=== PATIENT | male | born 1995 | race Native Hawaiian/Other Pacific Islander ===

== ENCOUNTER 2019-06-19 19:36 | Emergency (ER) | payer OTHER ==
[~2019-06-19] VITALS: Ht 170.2 cm; Wt 136.4 kg
[2019-06-19 20:25] LABS: BASOPHILS % (AUTO) 0.5 % (0.0-2.0); EOSINOPHILS % (AUTO) 2.7 % (1.0-6.0); HEMATOCRIT 46.1 % (41-53); HEMOGLOBIN 15.3 g/dL (13.5-17.5); LYMPHOCYTES # (AUTO) 1.9 K/uL (1.0-4.8); LYMPHOCYTES % (AUTO) 16.7 % (22.0-44.0); MEAN CORPUSCULAR HEMOGLOBIN 29.9 pg (26.0-34.0); MEAN CORPUSCULAR HGB CONC 33.2 G/dL (31.0-37.0); MEAN CORPUSCULAR VOLUME 90 fL (80-100); MONOCYTES # (AUTO) 0.9 K/uL (0.1-1.0); MONOCYTES % (AUTO) 7.8 % (2.0-9.0); NEUTROPHILS # (AUTO) 8.2 K/uL (1.8-7.7); NEUTROPHILS % (AUTO) 72.3 % (40.0-70.0); PLATELET COUNT (AUTO) 396 K/uL (150-450); RED BLOOD CELL COUNT(AUTO) 5.12 MIL/uL (4.50-5.90); RED CELL DISTRIBUTION WIDTH 13.9 % (11.5-14.5)
[2019-06-19 20:34] LABS: ANION GAP 9 mmol/L (8-16); CALCIUM, TOTAL 9.6 mg/dL (8.8-10.5); CARBON DIOXIDE 25 mmol/L (22-29); CHLORIDE 101 mmol/L (98-107); CREATININE 0.84 mg/dL (0.60-1.30); GLOMERULAR FILTR. RATE CALC > 60 mL/min (>60); GLUCOSE,RANDOM 98 mg/dL (70-110); POTASSIUM 4.3 mmol/L (3.5-5.1); SODIUM SERUM 135 mmol/L (136-145); UREA NITROGEN, BLOOD 15 mg/dL (7-18)
[2019-06-19 20:40] LABS: ALANINE AMINOTRANSFERASE 32 U/L (12-78); ALBUMIN 3.8 g/dL (3.4-5.0); ALKALINE PHOSPHATASE 62 U/L (46-116); ASPARTATE AMINOTRANSFERASE 20 U/L (15-37); BILIRUBIN,TOTAL 0.3 mg/dL (0.1-1.0); TOTAL PROTEIN, SERUM 8.5 g/dL (6.4-8.2)
[2019-06-19 20:41] LABS: AMPHET/METH SCREEN,URINE POSITIVE (NEGATIVE); BARBITURATE SCREEN, URINE NEGATIVE (NEGATIVE); BENZODIAZEPINES SCREEN,URINE NEGATIVE (NEGATIVE); CANNABINOID SCREEN,URINE POSITIVE (NEGATIVE); COCAINE SCREEN,URINE NEGATIVE (NEGATIVE); METHADONE SCREEN, URINE NEGATIVE (NEGATIVE); OPIATE SCREEN,URINE NEGATIVE (NEGATIVE)
[2019-06-19 20:45] VITALS: BP 121/66
[2019-06-19 20:46] LABS: PHENCYCLIDINE SCREEN,URINE NEGATIVE (NEGATIVE)
== END 2019-06-19 21:05 | disposition home or self-care (01) ==
LOC: EMS 19:36
DX: F20.9 Schizophrenia, unspecified (principal); F12.90 Cannabis use, unspecified, uncomplicated; F17.210 Nicotine dependence, cigarettes, uncomplicated; F11.90 Opioid use, unspecified, uncomplicated
CPT/HCPCS: 36415; 80053; 80307; 85025; 99284; G0480

== ENCOUNTER 2019-06-21 13:04 | Inpatient (IN) | payer MEDICAID ==
[~2019-06-21] VITALS: Ht 170.2 cm; Wt 131.1 kg
[2019-06-21 14:41] VITALS: BP 113/65
[2019-06-21] MEDS ORDERED: ACETAMINOPHEN 325 MG TABLET PO PRN (15:00)
[2019-06-21] MEDS ORDERED: LORazepam 2 MG TABLET PO PRN (15:00)
[2019-06-21] MEDS ORDERED: OLANZapine 5 MG RAPDIS TABLET PO PRN (15:00)
[2019-06-21] MEDS ORDERED: MAGNESIUM HYDROXIDE SUSPENSION 30 ML UDCUP PO PRN (15:00)
[2019-06-21] MEDS ORDERED: MAG HYDROX/AL HYDROX/SIMETH ES 30 ML SUSPENSION UDCUP PO PRN (15:00)
[2019-06-21] MEDS ORDERED: LOPERAMIDE HCL 2 MG CAPSULE PO PRN (15:00)
[2019-06-21] MEDS ORDERED: GuaiFENesin/D-METHORPHAN [SUGAR-FREE] 200-20MG/10 ML SYRUP UDCUP PO PRN (15:30)
[2019-06-21] MEDS ORDERED: HydrOXYzine PAMOATE 50 MG CAPSULE PO PRN (15:30)
[2019-06-21 16:10] VITALS: BP 107/60
[2019-06-21] MEDS: THIAMINE MONONITRATE 100 MG TABLET PO SCH (17:37)
[2019-06-21] MEDS ORDERED: OLANZapine 5 MG RAPDIS TABLET PO SCH (21:00)
[2019-06-22 05:27] VITALS: BP 137/57
[2019-06-22 07:58] LABS: BASOPHILS % (AUTO) 0.3 % (0.0-2.0); EOSINOPHILS % (AUTO) 4.7 % (1.0-6.0); HEMATOCRIT 44.3 % (41-53); HEMOGLOBIN 14.2 g/dL (13.5-17.5); LYMPHOCYTES # (AUTO) 1.8 K/uL (1.0-4.8); LYMPHOCYTES % (AUTO) 27.6 % (22.0-44.0); MEAN CORPUSCULAR HEMOGLOBIN 29.4 pg (26.0-34.0); MEAN CORPUSCULAR HGB CONC 32.2 G/dL (31.0-37.0); MEAN CORPUSCULAR VOLUME 91 fL (80-100); MONOCYTES # (AUTO) 0.7 K/uL (0.1-1.0); MONOCYTES % (AUTO) 11.2 % (2.0-9.0); NEUTROPHILS # (AUTO) 3.7 K/uL (1.8-7.7); NEUTROPHILS % (AUTO) 56.2 % (40.0-70.0); PLATELET COUNT (AUTO) 354 K/uL (150-450); RED BLOOD CELL COUNT(AUTO) 4.85 MIL/uL (4.50-5.90); RED CELL DISTRIBUTION WIDTH 14.2 % (11.5-14.5)
[2019-06-22 08:19] LABS: HEMOGLOBIN A1C 5.4 % (3.8-5.6)
[2019-06-22 08:30] LABS: ALANINE AMINOTRANSFERASE 22 U/L (12-78); ALKALINE PHOSPHATASE 45 U/L (46-116); ANION GAP 5 mmol/L (8-16); ASPARTATE AMINOTRANSFERASE 14 U/L (15-37); BILIRUBIN,TOTAL 0.2 mg/dL (0.1-1.0); CALCIUM, TOTAL 9.1 mg/dL (8.8-10.5); CARBON DIOXIDE 29 mmol/L (22-29); CHLORIDE 106 mmol/L (98-107); CHOL/HDL RATIO 2.9 (4.2-7.3); CHOLESTEROL 106 mg/dL (131-200); CREATININE 0.95 mg/dL (0.60-1.30); FREE T4 (FREE THYROXINE) 1.35 ng/dL (0.76-1.46); GLOMERULAR FILTR. RATE CALC > 60 mL/min (>60); GLUCOSE,RANDOM 88 mg/dL (70-110); HDL CHOLESTEROL 36 mg/dL (40-60); LDL CHOL (CALC.) 62 mg/dL (0-130); POTASSIUM 3.8 mmol/L (3.5-5.1); SODIUM SERUM 140 mmol/L (136-145); THYROID STIMULATING HORMONE 0.81 uIU/mL (0.36-3.74); TOTAL PROTEIN, SERUM 6.7 g/dL (6.4-8.2); TRIGLYCERIDES 41 mg/dL (15-150); UREA NITROGEN, BLOOD 11 mg/dL (7-18)
[2019-06-22 08:55] VITALS: BP 103/64
[2019-06-22] MEDS: NICOTINE 21 MG/24 HOUR PATCH TD SCH (09:00)
[2019-06-22] MEDS: NALTREXONE HCL 50 MG TABLET PO SCH (09:35)
[2019-06-22] MEDS: FOLIC ACID 1 MG TABLET PO SCH (09:35)
[2019-06-22] MEDS: THIAMINE MONONITRATE 100 MG TABLET PO SCH ×2 (09:35→16:14)
[2019-06-22] MEDS: MULTIVITAMINS WITH MINERALS, THERAPEUTIC TABLET PO SCH (09:35)
[2019-06-22 17:15] VITALS: BP 99/55
[2019-06-22] MEDS: ZOLPIDEM TARTRATE 10 MG TABLET PO PRN (20:09)
[2019-06-22] MEDS: OLANZapine 10 MG RAPDIS TABLET PO SCH (20:10)
[2019-06-23 04:56] VITALS: BP 109/69
[2019-06-23 08:10] VITALS: BP 110/62
[2019-06-23] MEDS: NALTREXONE HCL 50 MG TABLET PO SCH (08:37)
[2019-06-23] MEDS: FOLIC ACID 1 MG TABLET PO SCH (08:37)
[2019-06-23] MEDS: THIAMINE MONONITRATE 100 MG TABLET PO SCH ×2 (08:37→16:56)
[2019-06-23] MEDS: MULTIVITAMINS WITH MINERALS, THERAPEUTIC TABLET PO SCH (08:37)
[2019-06-23] MEDS: NICOTINE 21 MG/24 HOUR PATCH TD SCH (08:46)
[2019-06-23 09:55] LABS: APPEARANCE,URINE CLEAR (CLEAR); BILIRUBIN,URINE NEGATIVE (NEGATIVE); GLUCOSE, URINE (UA) NEGATIVE (NEGATIVE); KETONES,URINE NEGATIVE (NEGATIVE); LEUKOCYTE ESTERASE ,URINE NEGATIVE (NEGATIVE); NITRATE,URINE NEGATIVE (NEGATIVE); OCCULT BLOOD,URINE NEGATIVE (NEGATIVE); PH,URINE 7.5 (5.0-8.0); PROTEIN,URINE NEGATIVE (NEGATIVE)
[2019-06-23 10:04] LABS: AMPHET/METH SCREEN,URINE NEGATIVE (NEGATIVE); BARBITURATE SCREEN, URINE NEGATIVE (NEGATIVE); BENZODIAZEPINES SCREEN,URINE NEGATIVE (NEGATIVE); CANNABINOID SCREEN,URINE POSITIVE (NEGATIVE); COCAINE SCREEN,URINE NEGATIVE (NEGATIVE); METHADONE SCREEN, URINE NEGATIVE (NEGATIVE); OPIATE SCREEN,URINE NEGATIVE (NEGATIVE)
[2019-06-23 10:06] LABS: PHENCYCLIDINE SCREEN,URINE NEGATIVE (NEGATIVE)
[2019-06-23] MEDS ORDERED: NALT50TA PO (15:10)
[2019-06-23] MEDS ORDERED: OLAN10TA22 PO (15:10)
[2019-06-23 16:07] VITALS: BP 100/74
[2019-06-23] MEDS: OLANZapine 10 MG RAPDIS TABLET PO SCH (20:53)
[2019-06-23] MEDS: ZOLPIDEM TARTRATE 10 MG TABLET PO PRN (20:53)
[2019-06-24 06:37] VITALS: BP 111/55
[2019-06-24 08:15] VITALS: BP 97/45
[2019-06-24] MEDS: MULTIVITAMINS WITH MINERALS, THERAPEUTIC TABLET PO SCH (08:47)
[2019-06-24] MEDS: NALTREXONE HCL 50 MG TABLET PO SCH (08:47)
[2019-06-24] MEDS: THIAMINE MONONITRATE 100 MG TABLET PO SCH ×2 (08:47→16:32)
[2019-06-24] MEDS: FOLIC ACID 1 MG TABLET PO SCH (08:47)
[2019-06-24] MEDS: NICOTINE 21 MG/24 HOUR PATCH TD SCH (09:00)
[2019-06-24 16:15] VITALS: BP 131/76
== END 2019-06-24 18:37 | disposition home or self-care (01) | DRG 750 ==
LOC: B3A 14:32
PROVIDERS: ADMIT Psychiatry & Neurology Psychiatry; ATTEND Psychiatry & Neurology Psychiatry
DX: F20.0 Paranoid schizophrenia (principal); Z91.19 Patient's noncompliance with other medical treatment and regimen; F12.90 Cannabis use, unspecified, uncomplicated; F15.10 Other stimulant abuse, uncomplicated; Z65.3 Problems related to other legal circumstances
CPT/HCPCS: 80307; 83036; 84439; 84443; 86592

== ENCOUNTER 2020-11-30 07:12 | Inpatient (IN) | payer BC, MEDICAID ==
[~2020-11-30] VITALS: Ht 170.2 cm; Wt 146.8 kg
[~2020-11-30 07:12] MED LIST: NALT50TA PO; OLAN10TA22 PO
[2020-11-30 15:51] LABS: GLUCOMETER DEV NAME(LOC) POC.BV
[2020-11-30 16:35] VITALS: BP 102/65
[2020-11-30] MEDS ORDERED: INFLUENZA VIRUS VACCINE QVS 2021-22 (6MO+)/PF 60 MCG/0.5 ML SYRINGE IM. ONE (16:45)
[2020-12-01 06:21] VITALS: BP 142/84
[2020-12-01 08:24] LABS: BASOPHILS % (AUTO) 0.4 % (0.0-2.0); HEMATOCRIT 44.3 % (41-53); HEMOGLOBIN 14.6 g/dL (13.5-17.5); LYMPHOCYTES # (AUTO) 1.7 K/uL (1.0-4.8); LYMPHOCYTES % (AUTO) 17.6 % (22.0-44.0); MEAN CORPUSCULAR HGB CONC 32.9 G/dL (31.0-37.0); MEAN CORPUSCULAR VOLUME 91 fL (80-100); MONOCYTES # (AUTO) 0.8 K/uL (0.1-1.0); MONOCYTES % (AUTO) 7.9 % (2.0-9.0); NEUTROPHILS # (AUTO) 6.7 K/uL (1.8-7.7); NEUTROPHILS % (AUTO) 70.1 % (40.0-70.0); PLATELET COUNT (AUTO) 345 K/uL (150-450); RED BLOOD CELL COUNT(AUTO) 4.86 MIL/uL (4.50-5.90); RED CELL DISTRIBUTION WIDTH 13.8 % (11.5-14.5)
[2020-12-01 08:33] VITALS: BP 106/45
[2020-12-01 08:39] LABS: HEMOGLOBIN A1C 5.8 % (3.8-5.6)
[2020-12-01 09:09] LABS: ALANINE AMINOTRANSFERASE 32 U/L (12-78); ALKALINE PHOSPHATASE 66 U/L (46-116); ANION GAP 4 mmol/L (8-16); ASPARTATE AMINOTRANSFERASE 21 U/L (15-37); BILIRUBIN,TOTAL 0.2 mg/dL (0.1-1.0); CALCIUM, TOTAL 8.9 mg/dL (8.8-10.5); CARBON DIOXIDE 30 mmol/L (22-29); CHLORIDE 106 mmol/L (98-107); CHOL/HDL RATIO 3.7 (4.2-7.3); CHOLESTEROL 141 mg/dL (131-200); CREATININE 0.82 mg/dL (0.60-1.30); FREE T4 (FREE THYROXINE) 1.19 ng/dL (0.76-1.46); GLOMERULAR FILTR. RATE CALC > 60 mL/min (>60); GLUCOSE,RANDOM 86 mg/dL (70-110); HDL CHOLESTEROL 38 mg/dL (40-60); LDL CHOL (CALC.) 66 mg/dL (0-130); POTASSIUM 4.1 mmol/L (3.5-5.1); SODIUM SERUM 140 mmol/L (136-145); TOTAL PROTEIN, SERUM 6.9 g/dL (6.4-8.2); TRIGLYCERIDES 187 mg/dL (15-150); UREA NITROGEN, BLOOD 12 mg/dL (7-18)
[2020-12-01] MEDS: RisperiDONE 2 MG TABLET PO SCH ×2 (10:24→20:31)
[2020-12-01] MEDS ORDERED: IBUPROFEN 400 MG TABLET PO PRN (14:15)
[2020-12-01] MEDS ORDERED: CloNIDine HCL 0.1 MG TABLET PO PRN (14:15)
[2020-12-01] MEDS ORDERED: NICOTINE 14 MG/24 HOUR PATCH TD PRN (14:15)
[2020-12-01] MEDS ORDERED: LOPERAMIDE HCL 2 MG CAPSULE PO PRN (14:15)
[2020-12-01] MEDS ORDERED: ONDANSETRON HCL 4 MG TABLET PO PRN (14:15)
[2020-12-01] MEDS ORDERED: DOCUSATE SODIUM 100 MG CAPSULE PO PRN (14:15)
[2020-12-01] MEDS ORDERED: MAGNESIUM HYDROXIDE SUSPENSION 30 ML UDCUP PO PRN (14:15)
[2020-12-01] MEDS ORDERED: PETROLATUM,WHITE 28 GM JELLY TP PRN (14:15)
[2020-12-01] MEDS ORDERED: ALBUTEROL SULFATE HFA 90 MCG/PUFF 8 GM INHALER IH PRN (14:15)
[2020-12-01] MEDS ORDERED: MAG HYDROX/AL HYDROX/SIMETH ES 30 ML SUSPENSION UDCUP PO PRN (14:15)
[2020-12-01] MEDS ORDERED: ACETAMINOPHEN 325 MG TABLET PO PRN (14:15)
[2020-12-01] MEDS ORDERED: GuaiFENesin/D-METHORPHAN [SUGAR-FREE] 200-20MG/10 ML SYRUP UDCUP PO PRN (14:15)
[2020-12-01 16:16] VITALS: BP 124/61
[2020-12-01] MEDS: ZOLPIDEM TARTRATE 10 MG TABLET PO PRN (20:52)
[2020-12-02 01:22] VITALS: BP 125/74
[2020-12-02 08:39] VITALS: BP 123/72
[2020-12-02] MEDS: RisperiDONE 2 MG TABLET PO SCH ×2 (08:40→20:52)
[2020-12-02] MEDS: LORazepam 2 MG TABLET PO PRN (11:14)
[2020-12-02 16:12] VITALS: BP 110/73
[2020-12-03 02:42] VITALS: BP 125/74
[2020-12-03] MEDS: RisperiDONE 2 MG TABLET PO SCH ×2 (08:19→20:58)
[2020-12-03 08:22] VITALS: BP 117/63
[2020-12-03 16:12] VITALS: BP 111/67
[2020-12-04 04:56] VITALS: BP 136/92
[2020-12-04] MEDS: RisperiDONE 2 MG TABLET PO SCH ×2 (08:21→20:25)
[2020-12-04] MEDS ORDERED: PALIPERIDONE PALMITATE 234 MG/1.5 ML SYRINGE IM ONE (09:00)
[2020-12-04 11:01] VITALS: BP 126/74
[2020-12-04 16:08] VITALS: BP 129/71
[2020-12-05 05:44] VITALS: BP 136/88
[2020-12-05 08:28] VITALS: BP 123/72
[2020-12-05] MEDS: RisperiDONE 2 MG TABLET PO SCH ×2 (09:14→21:48)
[2020-12-05 16:09] VITALS: BP 108/68
[2020-12-06 06:05] VITALS: BP 118/70
[2020-12-06 08:27] VITALS: BP 138/71
[2020-12-06 09:26] LABS: COVID AG,FIA SOURCE NASAL SWAB
[2020-12-06] MEDS: RisperiDONE 2 MG TABLET PO SCH ×2 (09:44→20:24)
[2020-12-06 16:14] VITALS: BP 105/62
[2020-12-07 02:13] VITALS: BP 107/63
[2020-12-07] MEDS: RisperiDONE 2 MG TABLET PO SCH ×2 (08:13→20:38)
[2020-12-07 08:47] VITALS: BP 132/85
[2020-12-07 16:21] VITALS: BP 108/64
[2020-12-08 06:05] VITALS: BP 114/72
[2020-12-08 08:05] VITALS: BP 118/70
[2020-12-08] MEDS: RisperiDONE 2 MG TABLET PO SCH (08:50)
[2020-12-08] MEDS ORDERED: PALIPERIDONE PALMITATE 156 MG/ML SYRINGE IM ONE (09:00)
[2020-12-08 16:15] VITALS: BP 111/64
[2020-12-08] MEDS: RisperiDONE 3 MG TABLET PO SCH (21:07)
[2020-12-09 00:51] VITALS: BP 122/63
[2020-12-09 08:09] VITALS: BP 111/65
[2020-12-09] MEDS: RisperiDONE 3 MG TABLET PO SCH ×2 (09:13→21:11)
[2020-12-09] MEDS: HALOPERIDOL 5 MG TABLET PO PRN ×2 (10:46→16:53)
[2020-12-09] MEDS: LORazepam 2 MG TABLET PO PRN ×2 (10:46→16:53)
[2020-12-09 16:05] VITALS: BP 112/70
[2020-12-10 04:27] VITALS: BP 119/70
[2020-12-10 08:06] VITALS: BP 112/69
[2020-12-10] MEDS: RisperiDONE 3 MG TABLET PO SCH ×2 (08:39→20:29)
[2020-12-10 16:09] VITALS: BP 129/68
[2020-12-11 05:49] VITALS: BP 121/70
[2020-12-11 08:18] VITALS: BP 122/86
[2020-12-11] MEDS: RisperiDONE 3 MG TABLET PO SCH ×2 (08:22→20:47)
[2020-12-11] MEDS: LORazepam 2 MG TABLET PO PRN (08:26)
[2020-12-11 16:08] VITALS: BP 100/64
[2020-12-12 00:55] VITALS: BP 110/64
[2020-12-12] MEDS: LORazepam 2 MG TABLET PO PRN (08:18)
[2020-12-12] MEDS: OMEGA-3/DHA/EPA/FISH OIL 1,000 MG CAPSULE PO SCH (08:18)
[2020-12-12] MEDS: RisperiDONE 3 MG TABLET PO SCH ×2 (08:18→20:29)
[2020-12-12 08:29] VITALS: BP 138/85
[2020-12-12 16:40] VITALS: BP 104/60
[2020-12-13 04:53] VITALS: BP 121/68
[2020-12-13 08:32] VITALS: BP 128/74
[2020-12-13] MEDS: RisperiDONE 3 MG TABLET PO SCH ×2 (09:21→20:35)
[2020-12-13] MEDS: OMEGA-3/DHA/EPA/FISH OIL 1,000 MG CAPSULE PO SCH (09:21)
[2020-12-13 16:06] VITALS: BP 113/64
[2020-12-14 03:12] VITALS: BP 122/64
[2020-12-14 08:22] VITALS: BP 140/90
[2020-12-14] MEDS: OMEGA-3/DHA/EPA/FISH OIL 1,000 MG CAPSULE PO SCH (08:36)
[2020-12-14] MEDS: RisperiDONE 3 MG TABLET PO SCH ×2 (08:36→20:19)
[2020-12-14 16:14] VITALS: BP 135/83
[2020-12-15 05:35] VITALS: BP 107/62
[2020-12-15] MEDS: OMEGA-3/DHA/EPA/FISH OIL 1,000 MG CAPSULE PO SCH (08:20)
[2020-12-15] MEDS: RisperiDONE 3 MG TABLET PO SCH ×2 (08:20→20:28)
[2020-12-15 08:50] VITALS: BP 107/56
[2020-12-15] MEDS: LORazepam 2 MG TABLET PO PRN (10:39)
[2020-12-15 16:05] VITALS: BP 147/77
[2020-12-16 04:26] VITALS: BP 119/60
[2020-12-16 08:24] VITALS: BP 133/60
[2020-12-16] MEDS: OMEGA-3/DHA/EPA/FISH OIL 1,000 MG CAPSULE PO SCH (08:42)
[2020-12-16] MEDS: RisperiDONE 3 MG TABLET PO SCH ×2 (08:42→20:02)
[2020-12-16] MEDS: LORazepam 2 MG TABLET PO PRN (08:48)
[2020-12-16 16:11] VITALS: BP 115/71
[2020-12-17 04:20] VITALS: BP 130/78
[2020-12-17 08:07] VITALS: BP 138/97
[2020-12-17] MEDS: OMEGA-3/DHA/EPA/FISH OIL 1,000 MG CAPSULE PO SCH (08:32)
[2020-12-17] MEDS: LORazepam 2 MG TABLET PO PRN ×2 (08:32→16:50)
[2020-12-17] MEDS: RisperiDONE 3 MG TABLET PO SCH ×2 (08:32→20:40)
[2020-12-17 16:17] VITALS: BP 117/75
[2020-12-17] MEDS: ZOLPIDEM TARTRATE 10 MG TABLET PO PRN (22:21)
[2020-12-18 02:49] VITALS: BP 122/72
[2020-12-18 04:45] VITALS: BP 124/68
[2020-12-18 08:29] VITALS: BP 130/68
[2020-12-18] MEDS: RisperiDONE 3 MG TABLET PO SCH ×2 (08:30→20:35)
[2020-12-18] MEDS: OMEGA-3/DHA/EPA/FISH OIL 1,000 MG CAPSULE PO SCH (08:31)
[2020-12-18 16:06] VITALS: BP 181/63
[2020-12-19 00:31] VITALS: BP 115/73
[2020-12-19 08:27] VITALS: BP 105/57
[2020-12-19] MEDS: OMEGA-3/DHA/EPA/FISH OIL 1,000 MG CAPSULE PO SCH (09:48)
[2020-12-19] MEDS: RisperiDONE 3 MG TABLET PO SCH ×2 (09:48→20:26)
[2020-12-19 16:23] VITALS: BP 140/82
[2020-12-19 19:14] LABS: GLUCOMETER DEV NAME(LOC) POC.BV
[2020-12-20 01:15] VITALS: BP 140/62
[2020-12-20 08:37] VITALS: BP 120/64
[2020-12-20] MEDS: RisperiDONE 3 MG TABLET PO SCH ×2 (09:15→20:53)
[2020-12-20] MEDS: OMEGA-3/DHA/EPA/FISH OIL 1,000 MG CAPSULE PO SCH (09:15)
[2020-12-20 16:25] VITALS: BP 126/87
[2020-12-21 00:40] VITALS: BP 116/78
[2020-12-21 08:09] VITALS: BP 118/77
[2020-12-21] MEDS: OMEGA-3/DHA/EPA/FISH OIL 1,000 MG CAPSULE PO SCH (09:34)
[2020-12-21] MEDS: RisperiDONE 3 MG TABLET PO SCH ×2 (09:34→20:08)
[2020-12-21 16:28] VITALS: BP 143/84
[2020-12-22 00:37] VITALS: BP 137/76
[2020-12-22 08:07] VITALS: BP 119/80
[2020-12-22] MEDS: RisperiDONE 3 MG TABLET PO SCH ×2 (08:35→20:07)
[2020-12-22] MEDS: OMEGA-3/DHA/EPA/FISH OIL 1,000 MG CAPSULE PO SCH (08:35)
[2020-12-22 16:05] VITALS: BP 119/77
[2020-12-23 03:01] VITALS: BP 128/78
[2020-12-23 08:12] VITALS: BP 111/65
[2020-12-23] MEDS: OMEGA-3/DHA/EPA/FISH OIL 1,000 MG CAPSULE PO SCH (08:18)
[2020-12-23 16:15] VITALS: BP 140/80
[2020-12-23] MEDS: HALOPERIDOL 5 MG TABLET PO PRN (17:59)
[2020-12-24 02:53] VITALS: BP 124/72
[2020-12-24 08:06] VITALS: BP 117/70
[2020-12-24] MEDS: OMEGA-3/DHA/EPA/FISH OIL 1,000 MG CAPSULE PO SCH (08:26)
[2020-12-24 16:17] VITALS: BP 125/79
[2020-12-25 05:04] VITALS: BP 130/74
[2020-12-25] MEDS: OMEGA-3/DHA/EPA/FISH OIL 1,000 MG CAPSULE PO SCH (08:00)
[2020-12-25 08:32] LABS: COVID AG,FIA SOURCE NASOPHARYNGEAL
[2020-12-25 09:40] VITALS: BP 124/76
[2020-12-25 16:03] VITALS: BP 122/70
[2020-12-26 01:20] VITALS: BP 132/66
[2020-12-26 08:09] VITALS: BP 118/75
[2020-12-26] MEDS: OMEGA-3/DHA/EPA/FISH OIL 1,000 MG CAPSULE PO SCH (08:10)
[2020-12-26 16:11] VITALS: BP 120/82
[2020-12-27 00:20] VITALS: BP 110/62
[2020-12-27] MEDS: HALOPERIDOL 5 MG TABLET PO PRN (00:44)
[2020-12-27 08:19] VITALS: BP 108/66
[2020-12-27] MEDS: OMEGA-3/DHA/EPA/FISH OIL 1,000 MG CAPSULE PO SCH (09:09)
[2020-12-27 16:01] VITALS: BP 111/58
[2020-12-28 05:07] VITALS: BP 138/66
[2020-12-28 08:08] VITALS: BP 140/90
[2020-12-28] MEDS: OMEGA-3/DHA/EPA/FISH OIL 1,000 MG CAPSULE PO SCH (08:44)
[2020-12-28 16:17] VITALS: BP 130/71
[2020-12-29 00:48] VITALS: BP 130/88
[2020-12-29 08:10] VITALS: BP 112/57
[2020-12-29] MEDS: OMEGA-3/DHA/EPA/FISH OIL 1,000 MG CAPSULE PO SCH (08:59)
[2020-12-29] MEDS ORDERED: PALI234D IM (11:19)
[2020-12-29 16:03] VITALS: BP 137/81
[2021-01-05] MEDS ORDERED: PALIPERIDONE PALMITATE 234 MG/1.5 ML SYRINGE IM SCH (09:00)
== END 2020-12-29 16:10 | disposition home or self-care (01) | DRG 885 ==
LOC: B3A 15:07 → B2S 12-18 23:17 → B2X 12-21 18:53
PROVIDERS: ADMIT Psychiatry & Neurology Psychiatry; ATTEND Psychiatry & Neurology Psychiatry
DX: F25.1 Schizoaffective disorder, depressive type (principal); R45.851 Suicidal ideations; Z68.43 Body mass index [BMI] 50.0-59.9, adult; F94.0 Selective mutism; Z59.00 Homelessness unspecified; F17.200 Nicotine dependence, unspecified, uncomplicated; E78.5 Hyperlipidemia, unspecified; E66.01 Morbid (severe) obesity due to excess calories; Z71.6 Tobacco abuse counseling; R73.03 Prediabetes; Z20.822 Contact with and (suspected) exposure to COVID-19
CPT/HCPCS: 80053; 80061; 83036; 84436; 84439; 84443; 85025; 87081; 90686; G0480